=== PATIENT | male | born 1985 | race Caucasian/White ===

== ENCOUNTER 2019-01-12 23:22 | Emergency (ER) | payer SELFPAY ==
[~2019-01-12] VITALS: Ht 185.4 cm; Wt 95.3 kg
--- NOTE | 2019-01-12 23:22 | NUR ---
PATIENT BIB [facility] TO ER CHAIR [facility]
[2019-01-12 23:25] VITALS: BP 202/106
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
[2019-01-12 23:52] VITALS: BP 202/106
--- NOTE | 2019-01-12 23:53 | NUR ---
PATIENT BIB [facility] DE[employer]. PATIENT EXAMINED BY DR. RODRIGUES. PATIENT MEDICALLY CLEARED AND RELEASED IN CUSTODY IN STABLE CONDITION. ORIGINAL PRE-BOOK FORM GIVEN TO OFFICER ANNI.
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
== END 2019-01-12 23:52 ==
LOC: MED 23:22
DX: M79.10 Myalgia, unspecified site (principal); V89.2XXA Person injured in unspecified motor-vehicle accident, traffic, initial encounter; Y93.89 Activity, other specified; Y92.89 Other specified places as the place of occurrence of the external cause; Y99.8 Other external cause status
CPT/HCPCS: 99283